=== PATIENT | female | born 1980 | race Two or more races ===

== ENCOUNTER 2025-10-15 10:29 | Emergency (ER) | payer SELFPAY ==
[2025-10-15 10:59] VITALS: BP 167/86; PULSE 66; RESP 18; TEMP 36.7; O2SAT 98; BMI 41.5
[2025-10-15] MEDS: ACETAMINOPHEN 500 MG TABLET 1000 MG PO (11:22)
[2025-10-15] MEDS: KETOROLAC INJ 60 MG/2 ML VIAL IM (11:23)
[2025-10-15] MEDS: METOCLOPRAMIDE INJ 5 MG/ML VIAL 2 ML 10 MG IM (11:24)
--- NOTE | 2025-10-15 12:14 | EDNOTE_ITS ---
ED Headache RME/HPI General Chief Complaint: Headache Stated Complaint: DYER since last night, nausea Time Seen by Provider: 10/15/25 10:45 Arrival date/time: 10/15/25 10:29 This is a 45-year-old female that comes in with the emergency room with complaint of frontal headache that started yesterday patient also complains of nausea. Patient states she has had headaches in the past. Patient denies any sensitivity to light sensitivity to sound sensitivity smell vomiting double vision dizziness. Patient denies any past medical history. Patient's blood pressure is a little elevated upon arrival but patient states it is because she is in pain. Patient states she has her blood pressure checked normally and it is usually normal. Related Data Previous Rx's ?Medication ?Instructions ?Recorded baclofen 10 mg tablet 10 mg PO BID PRN muscle spas m #14 04/29/24 tabs ibuprofen 800 mg tablet 800 mg PO TID PRN pain #30 t abs 06/23/24 cyclobenzaprine 10 mg tablet 10 mg PO HS #20 tabs 07/28 11/19 ibuprofen 800 mg tablet 800 mg PO Q6H PRN pain #14 t abs 08/16/24 ibuprofen 800 mg tablet 800 mg PO Q6H PRN pain #14 t abs 10/15/25 Allergies Allergy/AdvReac Type Severity Reaction Status Date / Time No Known Allergies Allergy Verified 10/15/25 10:33 Review of Systems Review of Systems Systems Reviewed: All systems reviewed, normal except as documented Past Medical History Social History SMOKING STATUS: Never smoker ED Exam Narrative Physical exam: VITAL SIGNS: Reviewed. GENERAL APPEARANCE: Alert and interactive, follows commands, no acute distress HEAD AND FACE: Non-traumatic. ENT: PERRL, conjuctiva pink and clear, eyelid no trauma, Mucous membrane moist. Extraocular movements intact NECK: Supple, nontender, no nuchal rigidity. CHEST: No tenderness, no crepitus, no paradoxical movement, no retractions. LUNGS: breathing even and unlabored HEART: Regular rate, cap refill less than 2 seconds ABDOMEN: Soft, nondistended NEUROLOGICAL: Gross motor function intact sensory function intact, Appropriate for age. MUSCULOSKELETAL: low back nontender, full range of motion. no midline tenderness, no meningismus, no step offs EXTREMITIES: No redness no swelling no skin breakdown on bilateral foot and leg. Distal neurovascular status intact bilateral foot SKIN: Color pink, dry, no rash, no lacerations, no abrasions, no contusions. Course Quality Measures none Orders Category Date Time Status Acetaminophen Tab [Tylenol ES Tab] Med 10/15/25 11:11 Discontinued 1,000 mg PO X1 ONE DiphenhydrAMINE INJ [Benadryl Inj] Med 10/15/25 11:11 Discontinued 25 mg IM X1 ONE Ketorolac Inj [Toradol Inj] Med 10/15/25 11:11 Discontinued 60 mg IM X1 ONE Metoclopramide Inj [Reglan Inj] Med 10/15/25 11:11 Discontinued 10 mg IM X1 ONE Vital Signs Vital signs: Vital Signs Temperature 98.0 F 10/15/25 10:59 Pulse Rate 66 10/15/25 10:59 Respiratory Rate 18 10/15/25 10:59 Blood Pressure 167/86 H 10/15/25 10:59 Pulse Oximetry (%) 98 10/15/25 10:59 Oxygen Delivery Method Room Air 10/15/25 10:59 Headache MDM Narrative MDM Narrative:: Patient reports she has had a tubal ligation in the past. Today medicated patient with Tylenol, Toradol, Benadryl and Reglan. Approximately 30 minutes after she was given the medication she was sleeping in the room. I woke patient up and patient states that her pain is resolved. I did tell her that I can prescribe her some ibuprofen to take at home if needed patient is to follow-up with primary provider in 1 to 2 days. Come back to emergency room if symptoms change or worsen. Patient feels comfortable with plan of care and verbalized understanding. Dragon dictation: Although this document has been carefully reviewed, there may still be some phonetic and other typographical errors. These errors are purely grammatical due to imperfections in the software program and should not be construed in any way to compromise the substance of the patient's medical care during this visit. Patient data External records reviewed:: [facility] previous records Clinical information provided by:: patient Social determinants that could affect healthcare access:: none Patient has the following chronic illnesses:: none How is presenting disease/condition affected by chronic disease/condition?: no chronic disease Evaluation data The following diagnostics were reviewed and interpreted by me:: lab results Lab and/or radiology exams considered but not ordered:: none Interpretation Summary: see note Medications / Prescriptions Medications or Prescriptions considered but not ordered:: none Medication administrations:: Medication Administration History Discontinued Medications Acetaminophen (Acetaminophen 500 Mg Tablet) 1,000 mg PO X1 ONE Stop: 10/15/25 11:12 Last Admin: 10/15/25 11:22 Dose: 1,000 mg Documented By: BETH Diphenhydramine HCl (Diphenhydramine Inj 50 Mg/Ml Vial) 25 mg IM X1 ONE Stop: 10/15/25 11:12 Last Admin: 10/15/25 11:25 Dose: 25 mg Documented By: BETH Ketorolac Tromethamine (Ketorolac Inj 60 Mg/2 Ml Vial) 60 mg IM X1 ONE Stop: 10/15/25 11:12 Last Admin: 10/15/25 11:23 Dose: 60 mg Documented By: BETH Comments: pt denies Metoclopramide HCl (Metoclopramide Inj 5 Mg/Ml Vial 2 Ml) 10 mg IM X1 ONE; Protocol Stop: 10/15/25 11:12 Last Admin: 10/15/25 11:24 Dose: 10 mg Documented By: BETH see [facility] Consultations Consultation(s) initiated? (list below): No Diagnosis Differential diagnosis headache: migraine, tension headache, subarachnoid hemorrhage, headache and sinusitis Most likely diagnosis given after review of the tests above:: see note Admission Indicated Admission indicated?: not indicated Admission Request Was there a request for admission?: No Disposition Plan Disposition Plan: Discharge Discharge Attestation Discharge Attestation: The patient and all family members were given an opportunity to ask questions and understood the discharge instructions. Discharge instructions specifically effects, indications for sooner follow up or return to the emergency department, and the expected course of current diagnosis. Patient condition: Stable Discharge Plan Plan Patient Disposition: HOME (Self Care) Patient condition on transfer: Stable Prescriptions/Referrals Prescriptions/Med Rec: New ibuprofen 800 mg tablet 800 mg PO Q6H PRN (Reason: pain) Qty: 14 0RF No Action baclofen 10 mg tablet 10 mg PO BID PRN (Reason: muscle spasm) Qty: 14 0RF ibuprofen 800 mg tablet 800 mg PO TID PRN (Reason: pain) Qty: 30 0RF ibuprofen 800 mg tablet 800 mg PO Q6H PRN (Reason: pain) Qty: 14 0RF cyclobenzaprine 10 mg tablet 10 mg PO HS Qty: 20 0RF Problem List Clinical Impression: Acute tension headache Patient/Caregiver Discharge Instructions Discharge Activity: activity as tolerated Education Materials: ED Headache, Tension Additional Instructions: Follow up with primary provider in 1-2 days. Come back to ED if symptoms change or worsen Print Language: Frisian Stand Alone Forms: Adriana Award Info., Patient Portal Info Letter PA/VIDEO MACHINES MECHANIC Supervising Physician PA/VIDEO MACHINES MECHANIC Supervising Physician: dewayne
[2025-10-15 12:20] VITALS: BP 155/94; PULSE 68; RESP 18; TEMP 36.7; O2SAT 98
== END 2025-10-15 12:20 | disposition home or self-care (01) ==
LOC: SERX 13:37
PROVIDERS: Emergency Provider Emergency Medicine
DX: G44.209 Tension-type headache, unspecified, not intractable (principal)
CPT/HCPCS: 96372; 99282; J1200; J1885; J2765; A9270

== ENCOUNTER → 2025-10-25 | Outpatient (CLI) | payer MEDICAID, SELFPAY ==
--- NOTE | 2025-10-25 11:15 | XR_ITS ---
Examination: Screening digital mammography, bilateral Computer aided detection 3-D breast Tomosynthesis, bilateral Date and time of exam: 10/25/2025, 11:24 a.m. Comparisons: Not available. If prior mammograms can be obtained recommend comparison with today's exam. Indications: Screening Technique: Nonmagnified MLO, CC views of the breasts to been obtained, reconstructed from 3-D Tomosynthesis images. R2 computer aided detection program utilized for evaluation of suspicious masses and/or abnormal calcifications. 3-D Tomosynthesis images obtained. Technologist: Findings: There are scattered areas of fibroglandular density. No evidence of abnormal masses or suspicious calcifications. Impression: BI-RADS category 1: Negative findings (within normal) Recommend 1 year follow-up mammogram
== END | disposition home or self-care (01) ==
LOC: CDIM 11:16
PROVIDERS: Referring Provider Internal Medicine; Visit Provider Internal Medicine
DX: Z12.31 Encounter for screening mammogram for malignant neoplasm of breast (principal); R92.313 Mammographic fatty tissue density, bilateral breasts
CPT/HCPCS: 77063; 77067